=== PATIENT | male | born 1950 | race Caucasian/White ===

== ENCOUNTER → 2017-02-08 | Outpatient (CLI) | payer MEDICARE ==
--- NOTE | 2017-02-08 19:33 | MR ---
EXAMINATION TYPE: MR lumbar spine wo con DATE OF EXAM: 02/08/2017 7:18 PM COMPARISON: NONE HISTORY: LBP, LLE radic x several months Multiplanar, MultiSpin echo imaging of the lumbar spine was performed. L1-L2: Moderate disc desiccation noted. Circumferential disc bulge greatest posteriorly with effaceme nt of the ventral thecal sac. Constriction of the thecal sac without evidence for overt stenosis. Fac et joint arthropathy resulting in right greater than left foraminal encroachment. L2-L3: Moderate disc desiccation. Broad-based subligamentous disc protrusion effaces the ventral thec al sac. There is mild central stenosis. Hypertrophy of the ligamentum flavum and facet joint arthropa thy resulting in bilateral foraminal encroachment. L3-L4: Moderate disc desiccation noted. Circumferential disc bulge greatest posteriorly with effaceme nt of the ventral thecal sac. Constriction of the thecal sac without evidence for overt stenosis. Fac et joint arthropathy resulting in right greater than left foraminal encroachment. L4-L5: Moderate to severe disc desiccation. Posterocentral disc protrusion with mild effacement ventr al thecal sac. No evidence for central stenosis or lateral recess stenosis. Facet joint arthropathy r esulting in bilateral foraminal encroachment. L5-S1: Moderate disc desiccation. Circumferential disc bulge greatest posteriorly. Grade 1 anterolist hesis L5 on S1 of 4 mm. Facet joint arthropathy. No evidence for herniation or central stenosis. Lumbar segments are intact. No paraspinal masses are identified. Conus medullaris has a normal appe arance. L4 and S1 hemangioma is noted. Ventral spondylosis identified. IMPRESSION: 1. Multilevel degenerative disc disease with central stenosis at L2-3 as noted above.
== END | disposition home or self-care (01) ==
LOC: RADMRIMAIN 18:28
PROVIDERS: ATTEND Family Medicine
DX: M48.06 Spinal stenosis, lumbar region (principal); M51.16 Intervertebral disc disorders with radiculopathy, lumbar region
CPT/HCPCS: 72148

== ENCOUNTER → 2017-03-09 | Outpatient (CLI) | payer MEDICARE ==
--- NOTE | 2017-03-10 06:40 | MR ---
MRI CERVICAL SPINE: CLINICAL HISTORY: Cervical disc disorder with radiculopathy per order. Neck pain causing left arm num bness and tingling per patient. TECHNIQUE: Multiplanar, multisequence imaging of the cervical spine is performed without IV contrast. COMPARISON: None. FINDINGS: Sagittal images of the cervical spine show the craniocervical junction to appear within nor mal limits. The cervical and upper thoracic spinal cord is normal in course, caliber, and signal. De xtroconvex scoliotic curvature in visualized upper to midthoracic spine is noted on coronal images. T his is confirmed on CT chest study July 10, 2016. The vertebral body heights are normal. There i s moderate disc space narrowing with mild spurring C5-C6 and C6-C7 levels. Small posterior disc herni ations are seen at multiple levels effacing anterior thecal sac on sagittal images. The bone marrow signal intensity is within normal limits. Axial images at the C2-C3 level shows right foraminal disc protrusion causing asymmetric mild to mode rate right-sided neural foraminal narrowing on axial image 52. Left-sided neural foramen is patent. S sam canal is preserved. Axial images at C3-C4 level show small central disc protrusion mildly effacing anterior thecal sac, b ilateral neural foramina are patent. Axial images at C4-C5 level shows uncovertebral facet degenerative changes causing mild bilateral robert ral foraminal narrowing. There is small central disc protrusion mildly effacing anterior thecal sac n ear axial image 33. Axial images at C5-C6 level show broad-based posterior disc protrusion with more prominent right para central/foraminal component, there is asymmetric moderate to severe right-sided neural foraminal narr owing. There is mild to moderate left-sided neural foraminal narrowing noted. Axial images at C6-C7 level show broad-based posterior disc protrusion effacing anterior thecal sac a nd causing moderate to advanced right greater than left neural foraminal narrowing. Axial images at C7-T1 level show broad-based disc protrusion mildly effacing anterior thecal sac and causing asymmetric mild left-sided neural foraminal narrowing. Right-sided neural foramen is patent. IMPRESSION: Multilevel degenerative changes in the cervical spine most prominent at C5-C6 and C6-C7 l evels with further details as noted in body of report.
== END | disposition home or self-care (01) ==
LOC: RADMRIMAIN 20:59
PROVIDERS: ATTEND Family Medicine
DX: M47.22 Other spondylosis with radiculopathy, cervical region (principal)
CPT/HCPCS: 72141

== ENCOUNTER → 2017-11-02 | Outpatient (CLI) | payer MEDICARE ==
--- NOTE | 2017-11-02 11:41 | CT ---
EXAMINATION TYPE: CT sinus wo con DATE OF EXAM: 11/02/2017 COMPARISON: NONE HISTORY: Acute sinusitis CT DLP: [address] of the paranasal sinuses was performed in the axial and coronal planes. Bone and soft tissue settings are submitted. The paranasal sinuses demonstrate normal aeration and development. The paranasal sinuses are free of mucosal thickening or air fluid level. The osteal meatal units are patent bilaterally. The nasal septum is deviated from right to left. No bony destructive changes are seen within the field of view. Small amount of fluid within the left-sided mastoid air cells. IMPRESSION: Nasal septal deviation from right to left.
== END | disposition home or self-care (01) ==
LOC: RADCTMAIN 11:16
PROVIDERS: ATTEND Otolaryngology
DX: J34.2 Deviated nasal septum (principal); J32.9 Chronic sinusitis, unspecified
CPT/HCPCS: 70486

== ENCOUNTER → 2018-06-28 | Outpatient (CLI) | payer MEDICARE ==
--- NOTE | 2018-06-28 21:46 | CT ---
EXAMINATION TYPE: CT iac wo con DATE OF EXAM: 06/28/2018 COMPARISON: Sinus CT November 02, 2017 HISTORY: Right side hearing loss. CT DLP: 142.7 mGycm. Automated Exposure Control for Dose Reduction was Utilized. TECHNIQUE: CT scan of internal auditory canal is performed without contrast, thin cut axial images ar e obtained, coronal reformatted images are also reviewed. Additional images acquired as per request of ordering physician. FINDINGS: The external auditory canals are patent bilaterally. Mastoid air cells show patchy opacifi cation on the left with minimal opacification inferiorly on the right redemonstrated. The middle ear ossicles are symmetric and unremarkable. There is no evidence of suspicious surrounding soft tissue density to suggest cholesteatoma. The scutum is preserved bilaterally. The cochlea and the semicir cular canals are symmetric and unremarkable. Vestibular aqueduct and internal carotid canal appear u nremarkable. Temporomandibular joints are maintained bilaterally. Visualized paranasal sinuses show new mild muco bailee thickening inferior aspect bilateral maxillary sinuses. Visualized portion brain parenchyma is fe lt within normal limits. IMPRESSION: Suspect retained secretions in bilateral mastoid air cells. No new or significant findin gs seen to account for patient's symptoms of right-sided hearing loss
== END ==
LOC: RADCTMAIN 16:11
PROVIDERS: ATTEND Otolaryngology
DX: H91.91 Unspecified hearing loss, right ear (principal); H93.11 Tinnitus, right ear; H83.11 Labyrinthine fistula, right ear; H83.12 Labyrinthine fistula, left ear
CPT/HCPCS: 70480

== ENCOUNTER → 2018-10-14 | Outpatient (CLI) | payer MEDICARE | END | disposition home or self-care (01) | LOC: LABWHC1 14:03 | PROVIDERS: ATTEND Urology | DX: R97.21 Rising PSA following treatment for malignant neoplasm of prostate (principal) | CPT/HCPCS: 36415; 84153 ==

== ENCOUNTER → 2023-02-27 | Outpatient (CLI) | payer MEDICARE ==
--- NOTE | 2023-02-27 11:07 | MR ---
MRI CERVICAL SPINE: CLINICAL HISTORY: Neck and bilateral shoulder pain spinal stenosis TECHNIQUE: Multiplanar, multisequence imaging of the cervical spine is performed without IV contrast. COMPARISON: MRI cervical spine March 09, 2017. FINDINGS: Sagittal images of the cervical spine show the craniocervical junction to remain within nor mal limits. The cervical and upper thoracic spinal cord remains normal in caliber and signal. The ve rtebral body heights remain normal. There is slight grade 1 retrolisthesis C5 on C6 redemonstrated.. Mild to moderate disc space narrowing C5-C6 and C6-C7 levels is redemonstrated. The bone marrow sign al intensity is within normal limits. Axial images at the C2-C3 level shows asymmetric right sided uncovertebral facet arthropathy causing asymmetric mild to moderate right-sided neural foraminal narrowing. No significant change from prior. Axial images at C3-C4 level show small central disc protrusion minimally effacing anterior thecal sac , bilateral neural foramina are patent. No significant change from prior. Axial images at C4-C5 level shows uncovertebral facet degenerative changes and mild to moderate broad disc bulge effacing anterior thecal sac with moderate bilateral neural foraminal narrowing. Findings more prominent from prior study. Axial images at C5-C6 level show spondylolisthesis with broad based posterior disc protrusion having more prominent right paracentral/foraminal component, there is moderate left and severe right-sided n eural foraminal narrowing redemonstrated. No significant change from prior. Axial images at C6-C7 level show broad-based posterior disc protrusion effacing anterior thecal sac a nd causing moderate bilateral neural foraminal narrowing. No significant change from prior. Axial images at C7-T1 level remain within normal limits. IMPRESSION: Multilevel degenerative change in the cervical spine with most prominent findings at C4-C 5 through C6-C7 level as detailed above.
== END | disposition home or self-care (01) ==
LOC: RADMRIMAIN 10:24
PROVIDERS: ATTEND Family Medicine
DX: M47.812 Spondylosis without myelopathy or radiculopathy, cervical region (principal); M48.02 Spinal stenosis, cervical region
CPT/HCPCS: 72141

== ENCOUNTER → 2024-05-17 | Outpatient (CLI) | payer MEDICARE ==
--- NOTE | 2024-06-28 14:08 | NM ---
Site ID [facility] Miguel A Johnston ID [id number] Order # EXAMINATION TYPE: NM hepatobiliary w EF DATE OF EXAM: 05/23/2024 COMPARISON: NONE INDICATION: Right upper quadrant pain TECHNIQUE: After the intravenous administration of 4.51 mCi Tc 99m Mebrofenin hepatobiliary scintigra phy is performed. Images were obtained immediately post injection. FINDINGS: There is prompt uptake and excretion of radiotracer by the liver. Extrahepatic ducts are identified at 2 minutes. The gallbladder is visualized within 2 minutes. Small bowel activity is noted within 50 minutes. At one hour the ejection fraction is calculated at 66 %, which is in the normal range.. (Normal >35% and <80%.). IMPRESSION: 1. Normal hepatobiliary scan.
== END | disposition home or self-care (01) ==
LOC: RADNMMAIN 07:46
PROVIDERS: ATTEND Family Medicine
DX: R10.11 Right upper quadrant pain (principal); K83.1 Obstruction of bile duct
CPT/HCPCS: 78226; A9537

== ENCOUNTER → 2025-02-24 | Outpatient (CLI) | payer MEDICARE ==
[2025-02-24 13:11] LABS: HCT 45.6 % (39.6-50.0); HGB 14.9 g/dL (13.0-17.0); MCH 31.3 pg (27.0-32.0); MCHC 32.7 g/dL (32.0-37.0); MCV 95.8 FL (80.0-97.0); Mean Platelet Volume 11.3 FL (9.5-12.2); NRBC Per 100 WBC 0 X 10*3/uL (0.00-0.01); Platelet Count 143 X 10*3/uL (140-440); RBC 4.76 X 10*6/uL (4.40-5.60); RDW 13.7 % (11.5-14.5); WBC 7.57 X 10*3/uL (4.50-10.00)
[2025-02-24 13:19] LABS: Blood Urea Nitrogen 14.2 mg/dL (9.0-27.0); Carbon Dioxide 25.5 mmol/L (21.6-31.8); Chloride 108 mmol/L (96-109); Potassium 4.3 mmol/L (3.5-5.5); Sodium 143 mmol/L (135-145)
== END | disposition home or self-care (01) ==
LOC: LABWHC1 08:18
PROVIDERS: ATTEND Internal Medicine Clinical Cardiac Electrophysiology
DX: Z01.812 Encounter for preprocedural laboratory examination (principal); I48.19 Other persistent atrial fibrillation
CPT/HCPCS: 80051; 82565; 84520; 85027

== ENCOUNTER 2025-02-27 09:17 | Day surgery (SDC) | payer MEDICARE ==
[~2025-02-27 09:17] MED LIST: MIDAZOLAM 2 MG/2 ML VIAL IV PRN
[2025-02-27 10:19] LABS: Basophils # (A) 0.05 10*3/uL (0.00-0.10); Basophils % (A) 0.6 %; Eosinophils # (A) 0.36 10*3/uL (0.04-0.35); Eosinophils % (A) 4.7 %; HCT 48.2 % (39.6-50.0); HGB 16.2 g/dL (13.0-17.0); Lymphocytes # (A) 1.37 10*3/uL (0.90-5.00); Lymphocytes % (A) 17.8 %; MCH 31.7 pg (27.0-32.0); MCHC 33.6 g/dL (32.0-37.0); MCV 94.3 fL (80.0-97.0); Monocytes % (A) 9.1 %; Neutrophils # (A) 5.19 10*3/uL (1.80-7.70); Neutrophils % (A) 67.4 %; Platelet Count 154 10*3/uL (140-440); RBC 5.11 10*6/uL (4.40-5.60); RDW 13.5 % (11.5-14.5)
[2025-02-27] MEDS: BENZOCAINE SPRAY 1 EACH MUCOUS MEM ONE ×2 (10:29→10:42)
[2025-02-27 10:30] LABS: African American GFR (CKD) >90 (>60 ml/min/1.73 sqM); Anion Gap 5 mmol/L; Blood Urea Nitrogen 16 mg/dL (9-20); Calcium 8.7 mg/dL (8.4-10.2); Carbon Dioxide 26 mmol/L (22-30); Chloride 107 mmol/L (98-107); Glucose 142 mg/dL (74-99); Non-African American GFR(CKD) 78 (>60 ml/min/1.73 sqM); Potassium 4.4 mmol/L (3.5-5.1); Sodium 138 mmol/L (137-145)
[2025-02-27] MEDS: IV FLUID CONTINUATION 1,000 ML IV ONE ×4 (10:35→18:27)
[2025-02-27] MEDS: MIDAZOLAM 2 MG/2 ML VIAL IVP ONE ×2 (10:43→10:54)
[2025-02-27] MEDS: fentaNYL (PF) 50 MCG/ML 2 ML AMP IVP ONE (10:43)
[2025-02-27] MEDS: fentaNYL (PF) 50 MCG/ML 5 ML AMP IVP PRN (10:50)
--- NOTE | 2025-02-27 14:22 | P.TEE ---
Date of Procedure: 02/27/25 Description of Procedure(s): Procedure performed: 1. Transesophageal Echocardiogram with color flow doppler, pulsed wave doppler and continuous wave doppler, (CPT 60024, +[id number], +[id number]) 2. Moderate conscious sedation. Sedation time 16 mins. (CPT 72599) Indications: Persistent atrial flutter. Evaluation of the left atrial appendage for thrombus prior to ablation procedure Consent: I have discussed the risks, benefits and alternative therapies for the above-mentioned procedure. The patient has indicated understanding and acceptance of the risks of the procedure. Signed consent was obtained and was placed in the paper chart. Procedural Steps: Timeout was performed in usual fashion. Patient's heart rate, blood pressure, oxygen saturation and ECG were monitored. Benzocaine was sprayed liberally in the back of the throat. Bite block was placed between the jaw. 3 mg of Versed and 75 mcg of Fentanyl were administered intravenously. After achieving appropriate moderate conscious sedation, TERRENCE probe was advanced without difficulty and without any immediate complications to the esophagus. TERRENCE study was performed with color flow doppler, pulsed wave doppler and continuous wave doppler. The probe was then removed. Patient tolerated the procedure well. Patient was transferred to the post procedure area in stable and satisfactory condition. Throughout the procedure patient's heart rate, blood pressure, oxygen saturation and ECG were monitored. Total sedation time 16 mins. Complications: none FINDINGS Left Atrium: Moderate left atrial dilatation. No evidence of mass or thrombus seen Left Atrial Appendage: No evidence of thrombus or mass seen in ELEN. Appropriate Doppler velocities in left atrial appendage. Inter atrial septum: Intact inter-atrial septum with no evidence of atrial septal defect or patent foramen ovale. Left Ventricle: Normal global LV size and systolic function Right Atrium: Mild RA dilatation. Right Ventricle: Normal global RV size and systolic function Aortic Valve: Structurally normal Trileaflet, no significant calcification. No significant stenosis or regurgitation on color doppler assessment. Mitral Valve: Structurally normal, trace mitral regurgitation Pulmonic Valve: Not well visualized. Tricuspid Valve: Mild tricuspid regurgitation Ascending aorta, Aortic root and Aortic arch: Normal size aortic root and ascending aorta. Mild intimal thickening. Ascending aorta 3.4 cm Descending aorta: Mild intimal thickening. No pericardial effusion CONCLUSION: No evidence of thrombus in ELEN or left atrial appendage Moderate left atrial dilatation, mild right atrial dilatation Intact interatrial septum with no evidence of PFO or ASD Normal global LV size and systolic function No significant valvular dysfunction Nicho Ortiz MD, RPVI, FACC Thank you for allowing [facility] to participate in this patient's care. Feel free to reach out in case of any followup questions.
[2025-02-27] MEDS ORDERED: MIDAZOLAM 2 MG/2 ML VIAL ONE (14:38)
[2025-02-27] MEDS ORDERED: NEOSTIGMINE 1 MG/ML 10 ML VIAL ONE (14:38)
[2025-02-27] MEDS ORDERED: WATER FOR INJECTION, STERILE 10 ML VIAL IV ONE (14:38)
[2025-02-27] MEDS ORDERED: ROCURONIUM 10 MG/ML (5 ML VIAL) IV ONE (14:38)
[2025-02-27] MEDS ORDERED: fentaNYL (PF) 50 MCG/ML 2 ML AMP ONE (14:38)
[2025-02-27] MEDS ORDERED: GLYCOPYRROLATE 0.2 MG/ML 2 ML VIAL ONE (14:38)
[2025-02-27] MEDS ORDERED: PHENYLEPHRINE 10 MG/ML VIAL ONE (14:38)
[2025-02-27] MEDS ORDERED: HEPARIN SODIUM,PORCINE 10,000 UNIT/ML 1 ML VIAL ONE (14:38)
[2025-02-27] MEDS ORDERED: ePHEDrine 50 MG/ML 1 ML VIAL ONE (14:38)
[2025-02-27] MEDS ORDERED: HEPARIN SODIUM,PORCINE 5,000 UNIT/ML 1 ML VIAL ONE (14:38)
[2025-02-27] MEDS ORDERED: PROPOFOL 10 MG/ML 20 ML VIAL IV ONE (14:38)
[2025-02-27] MEDS ORDERED: SUCCINYLCHOLINE CHLORIDE 200 MG/10 ML VIAL IV ONE (14:38)
[2025-02-27] MEDS: HEPARIN SODIUM,PORCINE 10,000 UNIT in SODIUM CHLORIDE 0.9% 1,000 ML IRRIGATION ONE (14:58)
[2025-02-27] MEDS: HEPARIN SOD,PORK IN 0.45% NACL 25,000 UNIT in 0.45% NACL 1 250ML.BAG IV ONE (14:59)
[2025-02-27] MEDS: HEPARIN SODIUM,PORCINE (1 ML) 2,500 UNIT in SODIUM CHLORIDE 0.9% 250 ML IRRIGATION ONE (14:59)
[2025-02-27] MEDS: HEPARIN SODIUM (1,000 UNIT/ML) 1,000 UNIT in SODIUM CHLORIDE 0.9% 1,000 ML IRRIGATION ONE (14:59)
[2025-02-27] MEDS: LIDOCAINE 1% INJ 10MG/ML (20 ML MDV) SQ ONE (15:18)
[2025-02-27] MEDS: IOPAMIDOL-370 100ML BTL INJ ONE (15:28)
[2025-02-27] MEDS ORDERED: ACETAMINOPHEN TAB 325 MG TAB PO PRN (18:20)
--- NOTE | 2025-02-27 18:37 | P.EPPROC ---
- EP Procedure Note Electrophysiology Procedure Note: PROCEDURE A. fib ablation/atrial tachycardia ablation: 1. Mitral reentry ablation, successful termination 2. Focal left atrial tachycardia from the anterior wall, successful with termination with RF PVI with cryoablation DIAGNOSIS Atrial fibrillation, symptomatic, refractory to therapy, with RVR RESULT No left atrial appendage mass seen on intracardiac echo Successful A. fib ablation/pulmonary vein isolation of all veins using cryo- ablation Complete entrance block No evidence for phrenic nerve injury Esophageal deflection NO Mitral reentry, successful mapping, ablation and termination with RF Focal left atrial tachycardia from the anterior wall, successful mapping ablation and termination with RF to sinus rhythm PROCEDURE DETAILS Written informed consent prior to procedure. Patient brought to the EP lab. General anesthesia given. Heparin administered. A city maintained above 300 seconds Both groins prepped and draped per protocol and venous sheaths placed. Esophagus intubated, circa catheter for temperature monitoring an endoscope for possible esophageal deflection. Phrenic nerve monitoring performed. Esophageal temperature monitoring performed. Esophageal deflection performed if circa catheter overlapping with the balloon or circa temperature less than 27.5°C Intracardiac echocardiography performed. Pericardium evaluated. Left atrial appendage evaluated. Left atrium evaluated along with pulmonary veins RF ablation catheter placed in the cavotricuspid isthmus. Tachycardia NOT consistent with atrial flutter typical Transseptal catheterization performed under fluoroscopic guidance and intracardiac echo guidance Cryoablation sheath exchanged, balloon catheter along with achieve catheter placed in the left atrium. Pulmonary veins isolated in the following sequence: Left superior pulmonary vein followed by left inferior pulmonary vein, and lastly right superior pulmonary vein. Left inferior pulmonary vein was completely isolated from prior ablation Phrenic nerve stimulation along with capture thresholds within the SVC and right superior pulmonary vein to identify the phrenic nerve proximity to the cryo- balloon. Pulmonary veins isolated and confirmed with entrance and exit block. Phrenic nerve integrity confirmed at the end of the procedure Patient was in an atrial tachycardia, cycle length 236 ms Penta ray catheter was used to map the left atrium. Voltage mapping was performed. The pulmonary veins were completely isolated. Left atrial roof and posterior wall were completely ablated Mitral reentry was confirmed An anterior RF line was made from the left atrial roof to the mitral annulus. Termination of the tachycardia occurred However the tachycardia slowed down to a second atrial tachycardia, 275 ms, slower atrial tachycardia Mapping of the second atrial tachycardia, which had a concentric coronary sinus activation revealed the earliest focus on the anterior LA wall RF ablation the site resulted in immediate termination to sinus rhythm RF ablation was applied around the site. Further mapping revealed noncapture in the gap between this lesion set and the mitral isthmus ablation lesion set. Extremely low likelihood of reentry in this gap Diagnostic catheters for the high right atrium, His bundle, coronary sinus placed. LA and RA pressures recorded LA pressure: 33/3/19 Diagnostic EP study with coronary sinus pacing and recording Baseline measurements: TX 144, QRS 112, QT 403 and sinus cycle length 850 ms AH 104 ms and HV interval 41 ms Venous sheaths were removed and hemostasis assured with a closure device. Patient extubated and transferred to recovery Increase procedural time This was a long procedure involving PVI with cryoablation in the left atrial roof and posterior wall. Small left atrium and an additional cryoablation lesion was given between the left superior and right superior pulmonary vein lesions. Later left atrial roof and posterior wall ablation were confirmed with Yfn mapping Following that the atrial tachycardia with a cycle length of 236 ms was mapped. Mitral reentry was ablated. However the patient had a second atrial tachycardia During the mapping we had to differentiate between grazyna-ELEN atrial appendage reentry versus focal tachycardia from the anterior wall of the left atrium. Detailed mapping including conventional and 3D mapping revealed that this was a focal tachycardia from the anterior wall of the left atrium. Successful ablation was performed at the site PROCEDURES PERFORMED Diagnostic EP study CS pacing and recording Left and right transseptal catheterization Catheter the mapping of the tachycardia Intracardiac echocardiography Pulmonary vein isolation with transseptal and comprehensive EPS, [id number] Extended procedure duration Left atrial mitral reentry line, +[id number] Focal ablation, left atrium, +[id number]
--- NOTE | 2025-02-27 18:39 | P.PRLE ---
RE: Miguel A Hightower Dear Addi Lara underwent a diagnostic EP study and underwent successful ablation of atrial fibrillation namely mitral reentry tachycardia and focal tachycardia from the anterior wall of the left atrium, to sinus rhythm Hopefully he maintains sinus rhythm However his Marcus vasc score = 3 and he should be on anticoagulation lifelong from now on Thank you for entrusting me with the care of the patient Warm regards Sincerely Teddy Nesbitt
[2025-02-27] MEDS: BENZOCAINE SPRAY 1 EACH MM ONE (20:29)
[2025-02-27] MEDS: APIXABAN 5 MG TAB PO SCH (20:45)
[2025-02-27] MEDS: SODIUM CHLORIDE 0.9% 1,000 ML IV SCH (20:45)
[2025-02-27] MEDS: ACETAMINOPHEN IV (For NPO) 1,000 MG in EMPTY BAG 1 BAG IVPB ONE (20:46)
[2025-02-28 08:05] VITALS: BP 128/79; PULSE 83; RESP 16; TEMP 97.6
[2025-02-28] MEDS: TAMSULOSIN 0.4 MG CAP.ER.24H PO SCH (08:55)
[2025-02-28] MEDS: METOPROLOL SUCCINATE (ER) 50 MG TAB.ER.24H PO SCH (08:55)
[2025-02-28] MEDS: LOSARTAN 50 MG TAB PO SCH (08:55)
[2025-02-28] MEDS: EZETIMIBE 10 MG TAB PO SCH (08:55)
[2025-02-28] MEDS: PRAVASTATIN SODIUM 20 MG TAB PO SCH (08:58)
--- NOTE | 2025-02-28 11:36 | P.DS ---
Providers Attending physician: Teddy Nesbitt Primary care physician: [facility] [place] Course: This is a 74-year-old male who underwent atrial fibrillation/atrial tachycardia ablation with Dr. Nesbitt. Patient is doing well post procedure with no immediate complications noted. No complaints of chest pain or shortness of breath. Vital signs are stable. The patient was deemed stable for discharge today per Dr. Nesbitt. Please see EMR for further hospital course details. Discharge diagnosis Atrial fibrillation, symptomatic, refractory to therapy with RVR status post A. fib ablation/atrial tachycardia ablation: 1. Mitral reentry ablation, successful termination 2. Focal left atrial tachycardia from the anterior wall, successful with termination with RF PVI with cryoablation Nurse practitioner note has been reviewed by physician. Signing provider agrees with the documented findings, assessment, and plan of care documented by CARPET REPAIRER as a scribe. Plan - Discharge Summary Discharge Rx Participant: No New Discharge Prescriptions: Continue Pravastatin Sodium [Pravachol] 20 mg PO DAILY Apixaban [Eliquis] 5 mg PO BID Multivitamin [Men's Multi-Vitamin] 1 tab PO DAILY Ezetimibe [Zetia] 10 mg PO DAILY Losartan [Cozaar] 50 mg PO DAILY Vit D (Unk) 1 tab PO DAILY Calcium (Unk) 1 tab PO DAILY Tamsulosin [Flomax] 0.4 mg PO DAILY Metoprolol Succinate (ER) [Toprol XL] 50 mg PO DAILY Timolol 0.5% Ophth Soln [Timoptic 0.5% Ophth Soln] 1 drop BOTH EYES DAILY Discharge Medication List Apixaban [Eliquis] 5 mg PO BID 07/02/16 [History] Multivitamin [Men's Multi-Vitamin] 1 tab PO DAILY 07/02/16 [History] Pravastatin Sodium [Pravachol] 20 mg PO DAILY 07/02/16 [History] Calcium (Unk) 1 tab PO DAILY 02/23/25 [History] Ezetimibe [Zetia] 10 mg PO DAILY 02/23/25 [History] Losartan [Cozaar] 50 mg PO DAILY 02/23/25 [History] Metoprolol Succinate (ER) [Toprol XL] 50 mg PO DAILY 02/23/25 [History] Tamsulosin [Flomax] 0.4 mg PO DAILY 02/23/25 [History] Timolol 0.5% Ophth Soln [Timoptic 0.5% Ophth Soln] 1 drop BOTH EYES DAILY 02/23/25 [History] Vit D (Unk) 1 tab PO DAILY 02/23/25 [History] Follow up Appointment(s)/Referral(s): Teddy Nesbitt MD [STAFF PHYSICIAN] - 1 Week (OFFICE WILL CALL PATIENT WITH A FOLLOW UP APPOINTMENT DATE/TIME. ) Activity/Diet/Wound Care/Special Instructions: Post EP study - Ablation instructions 1. Keep access sites dry for 2 days. 2. No heavy lifting or straining for 2 days. 3. Avoid bending the hips repeatedly for 2 days. 4. You may go up and down stairs slowly 5. If you have had an ablation for atrial fibrillation or atrial flutter and are on a blood thinner, do not stop the blood thinner even temporarily for 3 months post ablation Call if the following is noted 1. Bleeding, increasing swelling or pain at the access sites. 2. Increasing chest discomfort, especially upon taking a deep breath. 3. Increasing shortness of breath, at rest or with exertion. 4. Undue cough / phlegm 5. Difficulty or pain while swallowing. 6. Pain or change in color in the extremities. 7. Fever, chills, rigors. 8. Increasing headache or neurologic symptoms. 9. Dizziness, fainting, palpitations For patients who have undergone an A-fib ablation /atrial flutter ablation Strict instruction; do NOT stop anticoagulation (Eliquis/Xarelto/Pradaxa) for the next 2 months temporarily, for any elective, nonurgent surgery. This increases the risk of stroke, post A-fib ablation Discharge Disposition: HOME SELF-CARE
== END 2025-02-28 10:44 | disposition home or self-care (01) ==
LOC: CATHEP 09:17 → 6NMEDSUR 18:10 → CATHEP 02-28 10:44
PROVIDERS: ATTEND Internal Medicine Clinical Cardiac Electrophysiology
DX: I48.19 Other persistent atrial fibrillation (principal); I48.91 Unspecified atrial fibrillation; I47.19 Other supraventricular tachycardia; Z79.01 Long term (current) use of anticoagulants
CPT/HCPCS: 93312; 93320; 93325; 86900; 86901; 80048; 85025; 86850; 93650; 93656; 93657; C1894; C1769; C1760 ×3; C1730 ×2; C1731; C1759; C1733; C1766; C1732; J2250; J1644 ×4; J2003; J3010 ×2; J0131; Q9967; 93655